=== PATIENT | male | born 1960 | race Two or more races ===

== ENCOUNTER 2021-08-16 00:13 | Emergency (ER) | payer MEDICAID ==
[~2021-08-16] VITALS: Ht 175.3 cm; Wt 71.7 kg
[2021-08-16] MEDS ORDERED: ACETAMINOPHEN WITH CODEINE 300/30MG TABLET PO ONE (05:45)
[2021-08-16] MEDS ORDERED: TOPUD PO (06:37)
[2021-08-16 06:45] VITALS: BP 132/53
== END 2021-08-16 06:48 | disposition home or self-care (01) ==
LOC: ER 00:13
DX: R07.89 Other chest pain (principal); M54.6 Pain in thoracic spine; E11.9 Type 2 diabetes mellitus without complications; E78.00 Pure hypercholesterolemia, unspecified; Z98.890 Other specified postprocedural states; V43.52XA Car driver injured in collision with other type car in traffic accident, initial encounter; Y93.89 Activity, other specified; Y92.488 Other paved roadways as the place of occurrence of the external cause
CPT/HCPCS: 71045; 93005; 99283

== ENCOUNTER 2022-04-06 00:09 | Emergency (ER) | payer MEDICAID ==
[~2022-04-06] VITALS: Ht 175.3 cm; Wt 75.0 kg
[~2022-04-06 00:09] MED LIST: TOPUD PO
[2022-04-06 00:20] VITALS: BP 140/90
[2022-04-06] MEDS ORDERED: IBUP-2029 MT (01:31)
== END 2022-04-06 02:19 | disposition home or self-care (01) ==
LOC: ER 00:30
DX: S39.012A Strain of muscle, fascia and tendon of lower back, initial encounter (principal); S29.011A Strain of muscle and tendon of front wall of thorax, initial encounter; E11.9 Type 2 diabetes mellitus without complications; E78.00 Pure hypercholesterolemia, unspecified; V99.XXXA Unspecified transport accident, initial encounter; Y93.89 Activity, other specified; Y92.89 Other specified places as the place of occurrence of the external cause; Y99.8 Other external cause status
CPT/HCPCS: 71045; 72100; 99284